=== PATIENT | male | born 1955 | race Caucasian/White ===

== ENCOUNTER 2022-01-23 17:19 | Emergency (ER) | payer BC ==
[2022-01-23] VITALS (7 sets, daily range): BP systolic 119–145; BP diastolic 71–85
[2022-01-23] MEDS ORDERED: VOLTAREN1%GEL TOP ×2 (18:33→18:34)
[2022-01-23] MEDS ORDERED: FLEXERIL5 M1 PO (18:34)
== END 2022-01-23 18:38 | disposition home or self-care (01) | DRG 563 ==
LOC: ED 17:19
DX: S46.911A Strain of unspecified muscle, fascia and tendon at shoulder and upper arm level, right arm, initial encounter (principal); X58.XXXA Exposure to other specified factors, initial encounter